=== PATIENT | female | born 1950 | race Caucasian/White ===

== ENCOUNTER 2021-04-11 02:20 | Emergency (ER) | payer MEDICARE, BC ==
[~2021-04-11] VITALS: Ht 162.6 cm; Wt 68.0 kg
[2021-04-11] MEDS ORDERED: VASOTEC20 MG PO (02:44)
[2021-04-11] MEDS ORDERED: ROPINIROLE HCL0.5 MG PO (02:44)
--- OUTSIDE RECORDS SUMMARY | 2021-04-11 04:34 | XMS ---
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 [place] VISIT COUNT (12 MO.) 1 DESIREE Holm TOTAL 1 NOTE: Visits indicate total known visits. ED/UCC VISIT TRACKING (12 MO.) 04/11/2021 02:22 DESIREE Gomez OR TYPE: Emergency COMPLAINT: - LOC/FALL INPATIENT VISIT TRACKING (12 MO.) No inpatient visits to display in this time frame [id number]
--- NOTE | 2021-04-11 18:08 | EKG ---
[facility] [address] [place], [place] [address] Signed Normal sinus rhythm Cannot rule out Anterior infarct , age undetermined Abnormal ECG No previous ECGs available Confirmed by OSKAR ROSADO MD ([id number]) on 04/11/2021 6:07:54 PM Electronically Signed By: OSKAR ROSADO MD 04/11/211807 PATIENT NAME: TITA ARMENTA [place] Electrocardiogram DATE OF : 46 PHYSICIAN: OSKAR ROSADO MD REPORT #: [id number] REPORT IS CONFIDENTIAL AND NOT TO BE RELEASED WITHOUT AUTHORIZATION
== END 2021-04-11 04:12 | disposition home or self-care (01) ==
LOC: ED 02:20
DX: I95.1 Orthostatic hypotension (principal); I10 Essential (primary) hypertension; Z88.8 Allergy status to other drugs, medicaments and biological substances; Z88.1 Allergy status to other antibiotic agents; Z79.899 Other long term (current) drug therapy
CPT/HCPCS: 73090; 80053; 83735; 84484; 85025; 93005; 93010; 99284-25; J7030

== ENCOUNTER 2024-04-01 15:47 | Emergency (ER) | payer MEDICARE, BC ==
[~2024-04-01] VITALS: Ht 162.6 cm; Wt 70.2 kg
[~2024-04-01 15:47] MED LIST: ROPINIROLE HCL0.5 MG PO; VASOTEC20 MG PO
[2024-04-01] MEDS ORDERED: ELIQUIS5 MG PO (16:02)
[2024-04-01] MEDS ORDERED: TRAMADOL HCL50 MG PO (16:03)
--- OUTSIDE RECORDS SUMMARY | 2024-04-01 17:04 | XMS ---
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 Edwin has no Care Guidelines for this patient. [place] VISIT COUNT (12 MO.) 1 DESIREE Monterroso [facility] TOTAL 2 NOTE: Visits indicate total known visits. ED/UCC VISIT TRACKING (12 MO.) 04/01/2024 15:49 DESIREE Gomez OR TYPE: Emergency COMPLAINT: - L KNEE [facility] COMPLAINT: - SORE THROAT INPATIENT VISIT TRACKING (12 MO.) No inpatient visits to display in this time frame [email or web address]
[2024-04-01 17:34] VITALS: BP 132/69
== END 2024-04-01 17:36 | disposition home or self-care (01) ==
LOC: ED 15:47
DX: M17.12 Unilateral primary osteoarthritis, left knee (principal); M23.307 Other meniscus derangements, unspecified meniscus, left knee; I10 Essential (primary) hypertension; Z88.1 Allergy status to other antibiotic agents; Z88.8 Allergy status to other drugs, medicaments and biological substances; Z79.01 Long term (current) use of anticoagulants; Z79.899 Other long term (current) drug therapy
CPT/HCPCS: 73560; 93971; 99284-25